=== PATIENT | male | born 1960 | race Caucasian/White ===

== ENCOUNTER 2019-06-13 14:06 | Inpatient (IN) | payer MEDICAID ==
[~2019-06-13] VITALS: Ht 172.7 cm; Wt 67.5 kg
[2019-06-13] MEDS ORDERED: NEURONTIN 300300 MG PO (14:13)
[2019-06-13] MEDS ORDERED: LISINOPRIL10 MG PO (14:15)
[2019-06-13] MEDS ORDERED: METOPROLOL TART50 MG PO (14:15)
[2019-06-13] MEDS ORDERED: RANITIDINE HCL150 M1 PO (14:16)
[2019-06-13] MEDS ORDERED: ZOCOR40 MG PO (14:17)
[2019-06-13 14:53] LABS: BASOPHILS 0.1 % (0-2); EOSINOPHILS 0 % (0-7); HEMATOCRIT 45.7 % (42.0-54.0); HEMOGLOBIN 15.2 g/dL (13.5-17.5); IMMATURE GRANULOCYTES 0.4 % (0-5); LYMPHOCYTES 4.2 % (15-50); MCH 27.6 pg (26.0-34.0); MCHC 33.3 g/dL (31.0-37.0); MCV 83.1 fL (80.0-100.0); MEAN PLATELET VOLUME 10.6 fL (7.4-10.4); MONOCYTES 3.9 % (2-11); NEUTROPHILS 91.4 % (40-80); PLATELET COUNT 320 10x3/uL (130-400); RDW 14.2 % (11.5-14.5); WBC 18.2 10x3/uL (4.8-10.8)
[2019-06-13 15:00] LABS: KETONE - SERUM SMALL mg/dL (NEGATIVE)
[2019-06-13 15:31] LABS: ALKALINE PHOSPHATASE 122 U/L (46-116); ALT (SGPT) 31 U/L (10-68); BILIRUBIN - TOTAL 0.59 mg/dL (0.2-1.3); CALCIUM 9.5 mg/dL (8.5-10.1); CARBON DIOXIDE 16.8 mmol/L (21.0-32.0); CHLORIDE - SERUM 96 mmol/L (98-107); CREATININE - SERUM 2.1 mg/dL (0.6-1.3); MAGNESIUM - SERUM 2.6 mg/dL (1.8-2.4); POTASSIUM - SERUM 4.1 mmol/L (3.5-5.1); SODIUM 141 mmol/L (136-145); UREA NITROGEN 36 mg/dL (7-18); eGFR NON AFRICAN AMERICAN 34 mL/min (90-120)
[2019-06-13 15:32] LABS: CALC OSMOLALITY 320 mosm/kg (275-300); GLUCOSE 682 mg/dL (74-106)
[2019-06-13 16:08] LABS: APPEARANCE CLEAR (CLEAR); BILIRUBIN NEGATIVE (NEGATIVE); COLOR YELLOW (YELLOW); GLUCOSE 1000 mg/dL (NEGATIVE); KETONE MODERATE mg/dL (NEGATIVE); NITRITE NEGATIVE (NEGATIVE); PROTEIN NEGATIVE (NEGATIVE); SPECIFIC GRAVITY 1.015 (1.005-1.020); UROBILINOGEN NORMAL (NORMAL)
[2019-06-13 20:00] VITALS: BP 135/78
[2019-06-13 20:28] LABS: ANION GAP 22.7 mmol/L (8-16); CALCIUM 9.1 mg/dL (8.5-10.1); CREATININE - SERUM 1.7 mg/dL (0.6-1.3); POTASSIUM - SERUM 3.8 mmol/L (3.5-5.1)
[2019-06-13 20:32] LABS: CARBON DIOXIDE 23.1 mmol/L (21.0-32.0)
[2019-06-13 21:00] VITALS: BP 140/76
[2019-06-13 22:00] VITALS: BP 133/77
[2019-06-13 22:39] VITALS: BP 169/96; BMI 22.6
[2019-06-13 23:00] VITALS: BP 163/94
[2019-06-14] VITALS (23 sets, daily range): BP systolic 146–194; BP diastolic 81–97; Ht 172.7 cm; Wt 67.5 kg
[2019-06-14 07:15] LABS: BASOPHILS 0.1 % (0-2); EOSINOPHILS 0 % (0-7); HEMATOCRIT 40.4 % (42.0-54.0); HEMOGLOBIN 13.7 g/dL (13.5-17.5); IMMATURE GRANULOCYTES 0.4 % (0-5); LYMPHOCYTES 4.7 % (15-50); MCH 27.4 pg (26.0-34.0); MCHC 33.9 g/dL (31.0-37.0); MONOCYTES 8.9 % (2-11); NEUTROPHILS 85.9 % (40-80); RDW 14.3 % (11.5-14.5); WBC 18.2 10x3/uL (4.8-10.8)
[2019-06-14 07:28] LABS: MAGNESIUM - SERUM 2.5 mg/dL (1.8-2.4); MCV 80.8 fL (80.0-100.0); PHOSPHOROUS 2.2 mg/dL (2.5-4.9); PLATELET COUNT 247 10x3/uL (130-400)
[2019-06-14 07:41] LABS: CALCIUM 8.4 mg/dL (8.5-10.1); CARBON DIOXIDE 27.4 mmol/L (21.0-32.0); POTASSIUM - SERUM 3.4 mmol/L (3.5-5.1)
[2019-06-14 07:45] LABS: CREATININE - SERUM 1.2 mg/dL (0.6-1.3)
[2019-06-14 13:36] LABS: ANION GAP 14.5 mmol/L (8-16); CALCIUM 8.3 mg/dL (8.5-10.1); CARBON DIOXIDE 24.4 mmol/L (21.0-32.0); CREATININE - SERUM 1.1 mg/dL (0.6-1.3); POTASSIUM - SERUM 3.9 mmol/L (3.5-5.1)
[2019-06-14 16:23] LABS: ANION GAP 16.3 mmol/L (8-16); CALCIUM 8.3 mg/dL (8.5-10.1); CARBON DIOXIDE 24.4 mmol/L (21.0-32.0); CREATININE - SERUM 1.1 mg/dL (0.6-1.3); POTASSIUM - SERUM 3.7 mmol/L (3.5-5.1)
[2019-06-14 20:16] LABS: CALC OSMOLALITY 290 mosm/kg (275-300); CALCIUM 8.3 mg/dL (8.5-10.1); CARBON DIOXIDE 26.1 mmol/L (21.0-32.0); CHLORIDE - SERUM 107 mmol/L (98-107); GLUCOSE 212 mg/dL (74-106); POTASSIUM - SERUM 3.4 mmol/L (3.5-5.1); SODIUM 142 mmol/L (136-145); UREA NITROGEN 17 mg/dL (7-18); eGFR NON AFRICAN AMERICAN 81 mL/min (90-120)
[2019-06-15] VITALS (14 sets, daily range): BP systolic 150–186; BP diastolic 65–103
[2019-06-15 03:53] LABS: BASOPHILS 0.2 % (0-2); EOSINOPHILS 0.3 % (0-7); HEMATOCRIT 39.2 % (42.0-54.0); HEMOGLOBIN 13.1 g/dL (13.5-17.5); IMMATURE GRANULOCYTES 0.3 % (0-5); LYMPHOCYTES 12.8 % (15-50); MCH 27.3 pg (26.0-34.0); MCHC 33.4 g/dL (31.0-37.0); MCV 81.8 fL (80.0-100.0); MEAN PLATELET VOLUME 10.1 fL (7.4-10.4); MONOCYTES 8.4 % (2-11); PLATELET COUNT 209 10x3/uL (130-400); RBC 4.79 10x6/uL (4.20-6.10); RDW 14.3 % (11.5-14.5)
[2019-06-15 03:55] LABS: CALC OSMOLALITY 287 mosm/kg (275-300); CALCIUM 8.5 mg/dL (8.5-10.1); CARBON DIOXIDE 26.5 mmol/L (21.0-32.0); CHLORIDE - SERUM 107 mmol/L (98-107); CREATININE - SERUM 0.9 mg/dL (0.6-1.3); POTASSIUM - SERUM 3.2 mmol/L (3.5-5.1); SODIUM 143 mmol/L (136-145); UREA NITROGEN 16 mg/dL (7-18); WBC 12.8 10x3/uL (4.8-10.8); eGFR NON AFRICAN AMERICAN > 90 mL/min (90-120)
[2019-06-15 03:57] LABS: GLUCOSE 134 mg/dL (74-106)
[2019-06-15 08:45] LABS: CALC OSMOLALITY 285 mosm/kg (275-300); CALCIUM 8.6 mg/dL (8.5-10.1); CARBON DIOXIDE 24.3 mmol/L (21.0-32.0); CHLORIDE - SERUM 105 mmol/L (98-107); GLUCOSE 141 mg/dL (74-106); POTASSIUM - SERUM 3.4 mmol/L (3.5-5.1); SODIUM 142 mmol/L (136-145); UREA NITROGEN 14 mg/dL (7-18); eGFR NON AFRICAN AMERICAN 81 mL/min (90-120)
[2019-06-15 12:57] LABS: CALC OSMOLALITY 290 mosm/kg (275-300); CALCIUM 8.6 mg/dL (8.5-10.1); CARBON DIOXIDE 23.5 mmol/L (21.0-32.0); CHLORIDE - SERUM 104 mmol/L (98-107); CREATININE - SERUM 0.9 mg/dL (0.6-1.3); GLUCOSE 175 mg/dL (74-106); POTASSIUM - SERUM 3.5 mmol/L (3.5-5.1); SODIUM 143 mmol/L (136-145); UREA NITROGEN 17 mg/dL (7-18); eGFR NON AFRICAN AMERICAN > 90 mL/min (90-120)
[2019-06-15 17:15] LABS: CALC OSMOLALITY 284 mosm/kg (275-300); CALCIUM 8.5 mg/dL (8.5-10.1); CARBON DIOXIDE 26.4 mmol/L (21.0-32.0); CHLORIDE - SERUM 103 mmol/L (98-107); CREATININE - SERUM 0.9 mg/dL (0.6-1.3); GLUCOSE 187 mg/dL (74-106); POTASSIUM - SERUM 3.5 mmol/L (3.5-5.1); SODIUM 140 mmol/L (136-145); UREA NITROGEN 16 mg/dL (7-18); eGFR NON AFRICAN AMERICAN > 90 mL/min (90-120)
[2019-06-16 00:57] VITALS: BP 137/60
[2019-06-16 05:08] VITALS: BP 138/65
[2019-06-16 06:24] LABS: BASOPHILS 0.1 % (0-2); EOSINOPHILS 0.8 % (0-7); HEMATOCRIT 39.6 % (42.0-54.0); HEMOGLOBIN 13.3 g/dL (13.5-17.5); IMMATURE GRANULOCYTES 0.3 % (0-5); LYMPHOCYTES 14.8 % (15-50); MCHC 33.6 g/dL (31.0-37.0); MCV 80.5 fL (80.0-100.0); MEAN PLATELET VOLUME 10.3 fL (7.4-10.4); MONOCYTES 9.4 % (2-11); NEUTROPHILS 74.6 % (40-80); PLATELET COUNT 220 10x3/uL (130-400); RBC 4.92 10x6/uL (4.20-6.10); RDW 13.9 % (11.5-14.5)
[2019-06-16 06:27] LABS: WBC 9.3 10x3/uL (4.8-10.8)
[2019-06-16 07:03] LABS: ALBUMIN 3.1 g/dL (3.4-5.0); ALKALINE PHOSPHATASE 91 U/L (46-116); ALT (SGPT) 22 U/L (10-68); BILIRUBIN - TOTAL 0.76 mg/dL (0.2-1.3); CALC OSMOLALITY 284 mosm/kg (275-300); CARBON DIOXIDE 26.3 mmol/L (21.0-32.0); CHLORIDE - SERUM 103 mmol/L (98-107); POTASSIUM - SERUM 3.5 mmol/L (3.5-5.1); PROTEIN - SERUM 6.5 g/dL (6.4-8.2); SODIUM 141 mmol/L (136-145); UREA NITROGEN 18 mg/dL (7-18); eGFR NON AFRICAN AMERICAN 81 mL/min (90-120)
[2019-06-16 07:04] LABS: GLUCOSE 138 mg/dL (74-106)
[2019-06-16 09:11] VITALS: BP 171/81
[2019-06-16 11:52] VITALS: BP 147/73
[2019-06-16] MEDS ORDERED: LANTUS SOL100 UNIT/1 SC (13:51)
[2019-06-16] MEDS ORDERED: HUMALOG 30100 UNITS/ SC (13:53)
--- NOTE | 2019-06-16 14:36 | MORECARE ---
CASE MANAGEMENT DISCHARGE SUMMARY PATIENT: FERMÍN PALACIOS UNIT: [id number] ADM DATE: 06/13/19 AGE: 59 : 56 SEX: M ROOM/BED: D.2231 AUTHOR: MERLYN,DOC PHYSICIAN: REFERRING PHYSICIAN: DULCE GERARDO MD DATE OF SERVICE: 06/16/19 Discharge Plan Patient Name: FERMÍN PALACIOS Facility: [facility]:[place] : 1960 Planned Disposition: Home Anticipated Discharge Date: Discharge Date: Expected LOS: Initial Reviewer: [email or web address] Initial Review Date: 06/16/2019 Generated: 06/16/19 3:36 pm Comments DCP- Discharge Planning Updated by [email or web address]: Kristi Del Toro on 06/16/19 1:[address] Patient Name: FERMÍN PALACIOS Admission Status: ER Accout number: [id number] Admission Date: 06-13-2019 : 1960 Admission Diagnosis: Attending: DULCE CORDOVA Current LOS: 3 Anticipated DC Date: Planned Disposition: Home Primary Insurance: MEDICAID [place] Discharge Planning Comments: CM MET WITH PT AFTER VERBAL CONSENT TO DO INITIAL CM ASSESSMENT. CM EXPLAINED THE ROLE OF A CM AND SERVICES AVAILABLE LIKE HOME HEALTH, REHAB AND DME. PT STATED HE WILL RETURN HOME WITH BROTHER . PT FEELS THIS IS A SAFE DC PLAN STATES HE NEEDS HELP WITH NEW DIABETIC TESTING SUPPLIES BECUASE HIS DOESNT WORK ANYMORE HE IS INDEPENDENT IN HIS CARE . . . CM WILL CONTINUE TO FOLLOW. Cut Out Stitcher: Kristi Del Toro DCPIA - Discharge Planning Initial Assessment Updated by [email or web address]: Kristi Del Toro on 06/16/19 2:32 pm * Is the patient Alert and Oriented? Yes * How many steps to enter\exit or inside your home? * PCP [facility] * [facility] * Preadmission Environment Home with Family * ADLs Independent * List name and contact numbers for known caregivers / representatives who currently or will assist patient after discharge: BROTHYVONNE CRUZ DOES NOT REMEMBER PHONE NUMBER * Verbal permission to speak to the caregivers and representatives has been obtained from the patient. N/A * Additional services required to return to the preadmission environment? No * Can the patient safely return to the preadmission environment? Yes * Has this patient been hospitalized within the prior 30 days at any hospital? No Patient Name: FERMÍN PALACIOS Page [id number] at 1436 All edits/amendments must be made on the electronic document DICTATION DATE: 06/16/191435 PREFABRICATOR: TARA 06/16/191435 RPT#: [id number] DC DATE: STATUS: ADM IN [facility] [address] [place] [address] END OF REPORT
--- NOTE | 2019-06-16 15:19 | MORECARE ---
CASE MANAGEMENT DISCHARGE SUMMARY PATIENT: FERMÍN PALACIOS UNIT: [id number] ADM DATE: 06/13/19 AGE: 59 : 56 SEX: M ROOM/BED: D.2231 AUTHOR: MERLYN,DOC PHYSICIAN: REFERRING PHYSICIAN: DULCE GERARDO MD DATE OF SERVICE: 06/16/19 Discharge Plan Patient Name: FERMÍN PALACIOS Facility: [facility]:[place] : 1960 Planned Disposition: Home Anticipated Discharge Date: Discharge Date: Expected LOS: Initial Reviewer: [email or web address] Initial Review Date: 06/16/2019 Generated: 06/16/19 4:18 pm Comments DCP- Discharge Planning Updated by [email or web address]: Kristi Del Toro on 06/16/19 2:[address] Patient Name: FERMÍN PALACIOS Admission Status: ER Accout number: [id number] Admission Date: 06-13-2019 : 1960 Admission Diagnosis: Attending: DULCE CORDOVA Current LOS: 3 Anticipated DC Date: Planned Disposition: Home Primary Insurance: MEDICAID [place] Discharge Planning Comments: CM MET WITH PT AFTER VERBAL CONSENT TO DO INITIAL CM ASSESSMENT. CM EXPLAINED THE ROLE OF A CM AND SERVICES AVAILABLE LIKE HOME HEALTH, REHAB AND DME. PT STATED HE WILL RETURN HOME WITH BROTHER . PT FEELS THIS IS A SAFE DC PLAN . A RX WAS GIVEN FOR MONITOR AND STRIPS TO TAKE TO [facility] FOR NEW TESTING SUPPLIES. HE IS INDEPENDENT IN HIS CARE . . . CM WILL CONTINUE TO FOLLOW. Border Patrol Agent: Kristi Del Toro DCPIA - Discharge Planning Initial Assessment Updated by [email or web address]: Kristi Del Toro on 06/16/19 2:32 pm * Is the patient Alert and Oriented? Yes * How many steps to enter\exit or inside your home? * PCP [facility] * Pharm[facility] * Preadmission Environment Home with Family * ADLs Independent * List name and contact numbers for known caregivers / representatives who currently or will assist patient after discharge: BROTHYVONNE CRUZ DOES NOT REMEMBER PHONE NUMBER * Verbal permission to speak to the caregivers and representatives has been obtained from the patient. N/A * Additional services required to return to the preadmission environment? No * Can the patient safely return to the preadmission environment? Yes * Has this patient been hospitalized within the prior 30 days at any hospital? No Last DP export: 06/16/19 1:36 p Patient Name: FERMÍN PALACIOS Page [phone] at 1519 All edits/amendments must be made on the electronic document DICTATION DATE: 06/16/191517 PROCESS MANAGER: TARA 06/16/191517 RPT#: [id number] DC DATE: STATUS: ADM IN [facility] [address] [place] [address] END OF REPORT
== END 2019-06-16 16:36 | disposition home or self-care (01) | DRG 639 ==
LOC: D.ER 14:06 → D.ICU 18:47 → D.MS 18:47
PROVIDERS: Emergency Medicine; Family Medicine; ADMIT Family Medicine; ATTEND Family Medicine
DX: E11.10 Type 2 diabetes mellitus with ketoacidosis without coma (principal); I16.0 Hypertensive urgency; Z91.19 Patient's noncompliance with other medical treatment and regimen; I25.10 Atherosclerotic heart disease of native coronary artery without angina pectoris